=== PATIENT | male | born 1985 | race Caucasian/White ===

== ENCOUNTER 2017-10-24 13:19 | Emergency (ER) | payer BC ==
[~2017-10-24] VITALS: Ht 190.5 cm; Wt 147.4 kg
[~2017-10-24 13:19] MED LIST: CLEOCIN HCL300 MG PO; HYDROXYZINE HCL25 M1 PO; IBUPROFEN 800800 MG PO; NOHOMEMEDICATIONS; PROAIR HFA8.5 GM INH; ROBAXIN500 MG PO; TOPROL XL25 MG PO; ZPAK PO
[2017-10-24] MEDS ORDERED: IBUPROFEN 800800 M1 PO (14:02)
[2017-10-24 14:10] VITALS: BP 130/79
== END 2017-10-24 14:11 | disposition home or self-care (01) ==
LOC: M.ERS 13:19
DX: S99.811A Other specified injuries of right ankle, initial encounter (principal); I10 Essential (primary) hypertension; F41.9 Anxiety disorder, unspecified; Z88.0 Allergy status to penicillin; W18.39XA Other fall on same level, initial encounter; Y93.89 Activity, other specified; Y92.89 Other specified places as the place of occurrence of the external cause; Y99.8 Other external cause status

== ENCOUNTER 2019-08-18 08:36 | Emergency (ER) | payer OTHER ==
[~2019-08-18] VITALS: Ht 190.5 cm; Wt 120.2 kg
[~2019-08-18 08:36] MED LIST changes: +IBUPROFEN 800800 M1 PO
[2019-08-18] MEDS ORDERED: PROZAC20 MG PO (08:47)
[2019-08-18] MEDS ORDERED: PRILOSEC OTC20 MG PO (08:47)
[2019-08-18] MEDS ORDERED: ZPAK PO (09:04)
[2019-08-18 09:36] VITALS: BP 142/88
== END 2019-08-18 09:37 | disposition home or self-care (01) ==
LOC: M.ERS 08:36
DX: J02.0 Streptococcal pharyngitis (principal); I10 Essential (primary) hypertension; Z88.0 Allergy status to penicillin; Z90.89 Acquired absence of other organs

== ENCOUNTER 2020-10-15 21:08 | Emergency (ER) | payer OTHER ==
[~2020-10-15] VITALS: Ht 190.5 cm; Wt 147.4 kg
[~2020-10-15 21:08] MED LIST changes: +PRILOSEC OTC20 MG PO; +PROZAC20 MG PO
[2020-10-15] MEDS ORDERED: MOBIC15 MG PO (23:20)
[2020-10-15] MEDS ORDERED: CYCLOBENZAPRINE5 MG PO (23:20)
[2020-10-15 23:34] VITALS: BP 149/92
== END 2020-10-15 23:34 | disposition home or self-care (01) ==
LOC: M.ERS 21:08
DX: S06.0X0A Concussion without loss of consciousness, initial encounter (principal); S50.812A Abrasion of left forearm, initial encounter; T14.8XXA Other injury of unspecified body region, initial encounter; M25.532 Pain in left wrist; M25.522 Pain in left elbow; M25.512 Pain in left shoulder; I10 Essential (primary) hypertension; F41.9 Anxiety disorder, unspecified; Z98.890 Other specified postprocedural states; Z79.899 Other long term (current) drug therapy; Z88.0 Allergy status to penicillin; Z90.89 Acquired absence of other organs; V89.2XXA Person injured in unspecified motor-vehicle accident, traffic, initial encounter; Y93.I9 Activity, other involving external motion; Y92.488 Other paved roadways as the place of occurrence of the external cause; Y99.8 Other external cause status